=== PATIENT | female | born 1995 | race African-American/Black ===

== ENCOUNTER → 2018-05-01 | Outpatient (CLI) | payer SELFPAY ==
--- NOTE | 2018-05-01 15:54 | RADIOLOGY REPORT (SQ) ---
EXAM DESCRIPTION: U/S ON8HIDD TRNABD 1GES W/ODOP COMPLETED DATE/TIME: 05/01/2018 3:37 pm REASON FOR STUDY: ENCOUNTER FOR SUPRVSN OF NORMAL , SECOND TRIMESTER Z34.82 ENCOUNTER FOR SUPRVSN OF NORMAL , SECOND TRI COMPARISON: None. TECHNIQUE: Static and Dynamic grayscale imaging performed of gravid uterus using transabdominal appr oac. Additional selected color Doppler and spectral images recorded. All stored on PACS. LIMITATIONS: None. FINDINGS: EGA: 21 weeks 4 days VLADISLAV: 09/07/2018 EFW: 434 grams PERCENTILE: Not calculated. JOÃO: 13.5 PLACENTA: Posterior. GRADE: I PRESENTATION: Cephalic. ANATOMY: HEART RATE: 150 beats per minute. FOUR CHAMBER HEART: Visualized. THREE VESSEL CORD: Yes. CORD INSERTION: Visualized. KIDNEYS AND BLADDER: Visualized. Appear normal. STOMACH: Visualized. Appears normal. SPINE: Normal as visualized. BRAIN AND LATERAL VENTRICLES: Visualized. Appear normal. OTHER: No other significant finding. MATERNAL ADNEXA: Maternal ovaries not visualized. CERVICAL LENGTH: 3.8 cm Closed. OTHER: No other significant finding. IMPRESSION: LIVING INTRAUTERINE . ESTIMATED GESTATIONAL AGE 21 weeks 4 days. NO VISUALIZED ANOMALIES. Trimester of : Second trimester - 13 weeks 1 day to 27 weeks 6 days. TECHNICAL DOCUMENTATION: JOB ID: [id number] [employer]- All Rights Reserved Reading location - IP/workstation name: [email or web address]
== END ==
LOC: RAD 13:46
PROVIDERS: ATTEND Nurse Practitioner Women's Health
DX: Z34.82 Encounter for supervision of other normal pregnancy, second trimester (principal)
CPT/HCPCS: 76801

== ENCOUNTER 2018-08-19 11:59 | Inpatient (IN) | payer MEDICAID ==
[2018-08-19] MEDS ORDERED: RINGERS SOLUTION,LACTATED 1,000 ML IV PRN (12:37)
[2018-08-19] MEDS ORDERED: RINGERS SOLUTION,LACTATED 1,000 ML IV ONE (12:37)
[2018-08-19] MEDS ORDERED: LIDOCAINE 1% INJ-PF (10 MG/ML) 30 ML SDV ONE (12:54)
[2018-08-19] MEDS ORDERED: PENICILLIN G-K 5 MILLION UNIT VIAL ONE ×2 (12:54→17:39)
[2018-08-19] MEDS ORDERED: MISOPROSTOL 0.2 MG TABLET ONE (12:54)
[2018-08-19] MEDS ORDERED: OXYTOCIN/NORMAL SALINE 20 UNIT/1,000 ML RTUINJ ONE (12:54)
[2018-08-19] MEDS ORDERED: PENICILLIN G POTASSIUM 5,000,000 UNIT in DEXTROSE 5%-WATER 100 ML IV ONE (12:57)
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
[2018-08-19 13:34] LABS: URINE AMPHETAMINES SCREEN NEGATIVE; URINE BARBITURATES SCREEN NEGATIVE; URINE BENZODIAZEPINES SCREEN NEGATIVE; URINE METHADONE SCREEN NEGATIVE; URINE PHENCYCLIDINE SCREEN NEGATIVE
[2018-08-19 13:38] LABS: URINE COCAINE SCREEN UNCONFIRMED POSITIVE; URINE MARIJUANA (THC) SCREEN UNCONFIRMED POSITIVE
[2018-08-19 14:29] LABS: ABSOLUTE EOSINOPHILS # (AUTO) 0.1 10^3/uL (0.0-0.6); ABSOLUTE LYMPHOCYTES (AUTO) 1.5 10^3/uL (0.5-4.7); ABSOLUTE MONOCYTES (AUTO) 0.5 10^3/uL (0.1-1.4); ABSOLUTE NEUT (AUTO) 5.2 10^3/uL (1.7-8.2); BASOPHILS % (AUTO) 0.2 % (0-2); EOSINOPHILS % (AUTO) 0.8 % (0-6); HEMATOCRIT 30.4 % (36.0-47.0); HEMOGLOBIN 10.1 g/dL (12.0-15.5); LYMPHOCYTES % (AUTO) 20.2 % (13-45); MEAN CORPUSCULAR HEMOGLOBIN 29.9 pg (27.0-33.4); MEAN CORPUSCULAR HGB CONC 33.4 g/dL (32.0-36.0); MEAN CORPUSCULAR VOLUME 90 fl (80-97); MONOCYTES % (AUTO) 6.6 % (3-13); PLATELET COUNT 170 10^3/uL (150-450); RED BLOOD COUNT 3.39 10^6/uL (3.72-5.28); RED CELL DISTRIBUTION WIDTH 14.2 % (11.5-14.0); SEGMENTED NEUTROPHILS % (AUTO) 72.2 % (42-78); TOTAL CELLS COUNTED % (AUTO) 100 %; WHITE BLOOD COUNT 7.2 10^3/uL (4.0-10.5)
[2018-08-19] MEDS ORDERED: EPHEDRINE SULFATE INJ 50 MG/1 ML AMPULE ONE (15:27)
[2018-08-19] MEDS ORDERED: BUPIVACAINE HCL/NS/PF 125 MG/100 ML RTUINJ EPI ONE (15:27)
[2018-08-19] MEDS ORDERED: BUPIVACAINE HCL 0.5 % INJ/PF 30 ML SDV ONE (15:27)
[2018-08-19] MEDS ORDERED: PHENYLEPHRINE HCL INJ/PF 10 MG/1 ML SDV ONE (15:27)
[2018-08-19 15:28] LABS: RUBELLA INTERPRETATION POSITIVE
[2018-08-19 15:36] LABS: CHLAM PCR NOT DETECTED (NOT DETECT); GON PCR NOT DETECTED (NOT DETECT)
[2018-08-19] MEDS: PENICILLIN G POTASSIUM 2,500,000 UNIT in DEXTROSE 5%-WATER 50 ML IV SCH ×2 (17:48→21:41)
[2018-08-19] MEDS ORDERED: ACETAMINOPHEN WITH CODEINE #3 TABLET PO PRN ×2 (19:06)
[2018-08-19] MEDS ORDERED: OXYTOCIN/NORMAL SALINE 20 UNIT/1,000 ML RTUINJ IV PRN (19:06)
[2018-08-19] MEDS ORDERED: ZOLPIDEM TARTRATE 5 MG TABLET PO PRN (19:06)
[2018-08-19] MEDS ORDERED: BENZOCAINE/MENTHOL AEROSOL SPRAY 56 ML TOP PRN (19:06)
[2018-08-19] MEDS ORDERED: MEASLES,MUMPS&RUBELLA VACC/PF 0.5 ML VIAL SUBCUT PRN (19:06)
[2018-08-19] MEDS ORDERED: DIBUCAINE 1% OINTMENT 28 GM TP PRN (19:06)
[2018-08-19] MEDS ORDERED: PROMETHAZINE HCL INJ 25 MG/1 ML VIAL IV PRN (19:07)
[2018-08-19] MEDS ORDERED: ACETAMINOPHEN 325 MG TABLET PO PRN (19:07)
[2018-08-19] MEDS ORDERED: DIPHENHYDRAMINE HCL 25 MG CAPSULE PO PRN (19:07)
[2018-08-19] MEDS ORDERED: GLYCERIN/WITCH HAZEL LEAF 1 EACH MED..PAD TP PRN (19:07)
[2018-08-19] MEDS ORDERED: DIPH/PERTUSS(ACELL)/TETANUS VAC/PF 0.5 ML SYR (>=10YO) IM PRN (19:07)
[2018-08-19] MEDS ORDERED: PROMETHAZINE HCL 25 MG SUPP.RECT PR PRN (19:07)
[2018-08-19] MEDS ORDERED: PSEUDOEPHEDRINE HCL 30 MG TABLET PO PRN (19:07)
[2018-08-19] MEDS ORDERED: NA PHOS,M-B/NA PHOS,DI-BA (ADULT) 133 ML ENEMA PR PRN (19:07)
[2018-08-19] MEDS ORDERED: PROMETHAZINE HCL 25 MG TABLET PO PRN (19:07)
[2018-08-19] MEDS ORDERED: MAGNESIUM HYDROXIDE SUSP 30 ML UDCUP PO PRN (19:07)
--- NOTE | 2018-08-19 19:38 | Warning Signs in Babies ---
VOD Warning Signs Datetime Report Generated by N: 08/19/2018 19:37 VOD#608 -Warning Signs in Babies: Viewed with Parent(s)/Family (08/19/2018 19:30:Laurie Mims RN)
--- NOTE | 2018-08-19 21:03 | Delivery Summary ---
Del Sum A-C Datetime Report Generated by CPN: 08/19/2018 21:03 DELIVERY PERSONNEL DELIVERY PERSONNEL: [id number] Delivery Doctor:: Avis Albright MD Anesthesiologist:: Ruth Niño MD Labor and Delivery Nurse:: Hallie Mcgraw RNfreedom of information officer Nurse:: Jennifer Marquez RN Astrophysics Teacher/BUSINESS SOLUTION ANALYST: Aurea Cortes, ST MATERNAL INFORMATION Delivery Anesthesia: Epidural Medications After Delivery: Pitocin Bolus-Please Comment Meds After Delivery Comment: Pitocin 20 units in 1000mL NS Maternal Complications: Premature Rupture of Membranes Provider Comments: VMI delivered in KAY presentation. No nuchal cord. SHoulders and body delivered without difficulty. Cord doubly clamped and cut and to maternal abdomen for NRP. Placenta delivered intact spontaneously. No perineal lacerations. FF at U. Mother and baby stable upon provider leaving the room. LABOR SUMMARY EDC: 08/29/2018 00:00 No. Babies in Womb: 1 Attempted: No Labor Anesthesia: Epidural LABOR INFORMATION Reason for Induction: Not Applicable Onset of Labor: 08/19/2018 12:45 Complete Dilatation: 08/19/2018 18:50 Oxytocin: N/A Group B Beta Strep: unknown Antibiotics # of Doses: 2 Antibiotics Time of Last Dose: 1747 Name of Antibiotic Given: PCN Steroids Given: None Reason Steroids Not Administered: Not Applicable MEMBRANES Membranes Rupture Method: Spontaneous Rupture of Membranes: 08/19/2018 10:30 Length of Rupture (hr): 8.42 Amniotic Fluid Color: Clear Amniotic Fluid Amount: Small Amniotic Fluid Odor: Normal STAGES OF LABOR Stage 1 hr: 6 Stage 1 min: 5 Stage 2 hr: 0 Stage 2 min: 5 Stage 3 hr: 0 Stage 3 min: 2 Total Time in Labor hr: 6 Total Time in Labor min: 12 VAGINAL DELIVERY Episiotomy: None Laceration #1: None Laceration Extension #1: N/A Laceration Repair: Not Applicable Sponge Count Correct: Yes Sharps Count Correct: Yes CSECTION DELIVERY Primary Indication: N/A CSection Incidence: N/A Labor: N/A Elective: N/A CSection Incision: N/A BABY A INFORMATION Infant Delivery Date/Time: 08/19/2018 18:55 Method of Delivery: Vaginal Born in Route : No : N/A Forceps: N/A Vacuum Extraction: N/A Shoulder Dystocia : No PRESENTATION/POSITION BABY A Presentation: Cephalic Cephalic Presentation: Vertex Vertex Position: Right Occipital Anterior Breech Presentation: N/A PLACENTA INFORMATION BABY A Placenta Delivery Time : 08/19/2018 18:57 Placenta Method of Delivery: Spontaneous Placenta Status: Delivered SCORES BABY A Heart Rate 1 min: >100 bpm Resp Effort 1 min: Good Cry Reflex Irritability 1 min: Cough or Sneeze or Pulls Away Muscle Tone 1 min: Active Motion Color 1 min: Blue/Pale Resuscitation Effort 1 min: Tactile Stimulation SCORE 1 MIN: 8 Heart Rate 5 min: >100 bpm Resp Effort 5 min: Good Cry Reflex Irritability 5 min: Cough or Sneeze or Pulls Away Muscle Tone 5 min: Active Motion Color 5 min: Body [place], Extremities Blue Resuscitation Effort 5 min: Tactile Stimulation SCORE 5 MIN: 9 INFORMATION BABY A Gestational Age at Delivery: 38.4 Gestational Status: Early Term- 37- 38.6 Weeks Infant Outcome : Liveborn Condition : Stable Infant Sex: Male IDENTIFICATION BABY A Infant Verification Date/Time: 08/19/2018 19:24 ID Band Number: [id number] Mother's Name Verified: Yes RN Verifying : B Baidy RN WEIGHT/LENGTH BABY A Infant Birthweight (gm): 2330 Infant Weight (lb): 5 Weight (oz): 2 Infant Length (in): 17.50 Length (cm): 44.45 CORD INFORMATION BABY A No. Cord Vessels: 3 Nuchal Cord : N/A Cord Blood Taken: Yes-For Eval (Mom's Blood Type - or O+) Infant Suction: Mouth; Nose ASSESSMENT BABY A Skin to Skin: Yes BABY B INFORMATION : N/A SIGNATURES Signature: with User ID: Carol Ann
[2018-08-19] MEDS: IBUPROFEN 800 MG TABLET PO SCH (21:36)
[2018-08-19] MEDS: FAMOTIDINE 20 MG TABLET PO SCH (21:36)
[2018-08-20] MEDS: PENICILLIN G POTASSIUM 2,500,000 UNIT in DEXTROSE 5%-WATER 50 ML IV SCH (05:13)
[2018-08-20] MEDS: IBUPROFEN 800 MG TABLET PO SCH ×3 (05:19→21:03)
[2018-08-20 06:08] LABS: HEMATOCRIT 27.5 % (36.0-47.0); HEMOGLOBIN 9.4 g/dL (12.0-15.5); MEAN CORPUSCULAR HEMOGLOBIN 30.5 pg (27.0-33.4); MEAN CORPUSCULAR HGB CONC 34.3 g/dL (32.0-36.0); MEAN CORPUSCULAR VOLUME 89 fl (80-97); PLATELET COUNT 147 10^3/uL (150-450); RED BLOOD COUNT 3.09 10^6/uL (3.72-5.28); RED CELL DISTRIBUTION WIDTH 13.9 % (11.5-14.0); WHITE BLOOD COUNT 10.2 10^3/uL (4.0-10.5)
[2018-08-20] MEDS: DOCUSATE SODIUM 100 MG CAPSULE PO SCH ×2 (09:28→17:39)
[2018-08-20] MEDS: FERROUS SULFATE 325 MG TABLET PO SCH ×2 (09:28→17:39)
[2018-08-20] MEDS: FAMOTIDINE 20 MG TABLET PO SCH ×2 (09:28→21:03)
[2018-08-20] MEDS: PRENATAL VITAMIN W DHA CAPSULE PO SCH (09:28)
[2018-08-20] MEDS: SENNOSIDES/DOCUSATE 8.6-50 MG 1 EACH TABLET PO SCH (09:28)
--- NOTE | 2018-08-20 10:23 | PDOC PROGRESS REPORT ---
Subjective-OB Progress Note for:: 08/20/18 Subjective: Sitting on side of bed, mother at BS holding baby, bottle feeding Physical Exam (OB) Vital Signs: Temp Pulse Resp BP Pulse Ox 97.8 F 70 16 109/57 L 100 08/20/18 07:37 08/20/18 07:37 08/20/18 07:37 08/20/18 07:37 08/20/18 07:37 Intake & Output 08/19/18 08/20/18 08/21/18 06:59 06:59 06:59 Intake Total 1550 Balance 1550 Weight 55 kg - PIH/Pre-Eclampsia Clonus: Negative Headache: Absent Epigastric Pain: No Visual Changes: No - Lochia Lochia Amount: Scant < 10 ml Lochia Color: Rubra/Red - Abdomen Description: Tender, Soft Hernia Present: No Fundal Description: Firm, Midline Fundal Height: u/u - u/2 Objective-Diagnostic Laboratory: 08/20/18 05:40 08/19/18 08/19/18 08/20/18 13:59 13:59 05:40 WBC 7.2 10.2 RBC 3.39 L 3.09 L Hgb 10.1 L 9.4 L Hct 30.4 L 27.5 L MCV 90 89 MCH 29.9 30.5 MCHC 33.4 34.3 RDW 14.2 H 13.9 Plt Count 170 147 L Seg Neutrophils % 72.2 Lymphocytes % 20.2 Monocytes % 6.6 Eosinophils % 0.8 Basophils % 0.2 Absolute Neutrophils 5.2 Absolute Lymphocytes 1.5 Absolute Monocytes 0.5 Absolute Eosinophils 0.1 Absolute Basophils 0.0 Blood Type O POSITIVE Antibody Screen TNP Assessment and Plan(PN) - Assessment and Plan (1) Anemia Qualifiers: Anemia type: iron deficiency Is this a current diagnosis for this admission?: Yes (2) Vaginal delivery Is this a current diagnosis for this admission?: Yes (3) Spontaneous rupture of membranes Is this a current diagnosis for this admission?: Yes (4) Limited care Qualifiers: Trimester: unspecified trimester Qualified Code(s): O09.30 - Supervision of with insufficient care, unspecified trimester Is this a current diagnosis for this admission?: Yes (5) Marijuana abuse Is this a current diagnosis for this admission?: Yes (6) Cocaine abuse Is this a current diagnosis for this admission?: Yes (7) Smoker Is this a current diagnosis for this admission?: Yes - Time Spent with Patient Time with patient: Less than 15 minutes Medications reviewed and adjusted accordingly: Yes - Disposition Anticipated Discharge: Home Within: within 24 hours
[2018-08-21] MEDS: IBUPROFEN 800 MG TABLET PO SCH ×2 (05:48→14:03)
[2018-08-21 07:42] LABS: HEPATITIS C VIRUS AB <0.1 s/co ratio (0.0-0.9)
[2018-08-21 08:08] VITALS: BP 110/64
[2018-08-21] MEDS: PRENATAL VITAMIN W DHA CAPSULE PO SCH (09:39)
[2018-08-21] MEDS: FAMOTIDINE 20 MG TABLET PO SCH (09:39)
[2018-08-21] MEDS: DOCUSATE SODIUM 100 MG CAPSULE PO SCH ×2 (09:39→18:32)
[2018-08-21] MEDS: SENNOSIDES/DOCUSATE 8.6-50 MG 1 EACH TABLET PO SCH (09:39)
[2018-08-21] MEDS: FERROUS SULFATE 325 MG TABLET PO SCH ×2 (09:39→18:32)
--- NOTE | 2018-08-21 10:45 | PDOC DISCHARGE SUMMARY ---
Final Diagnosis Discharge Date: 08/21/18 - Final Diagnosis (1) Anemia Is this a current diagnosis for this admission?: Yes (2) Limited care Is this a current diagnosis for this admission?: Yes (3) Vaginal delivery Is this a current diagnosis for this admission?: Yes Discharge Data - Discharge Medication Prescriptions: Ibuprofen [Motrin 800 mg Tablet] 800 mg PO Q8HP PRN #60 tablet PRN Reason: Home Medications: Ferrous Sulfate [Feosol 325 mg Tablet] 325 mg PO BID tablet 08/21/18 Ibuprofen [Motrin 800 mg Tablet] 800 mg PO Q8HP PRN #60 tablet 08/21/18 Vit/Dha [ Multi + Dha Capsule] 1 cap PO DAILY capsule Procedures: NST Intrapartum Procedure(s): Spontaneous Vaginal Delivery - Diagnosis Test Laboratory: Temp Pulse Resp BP Pulse Ox 97.9 F 57 L 14 110/64 100 08/21/18 09:02 08/21/18 09:02 08/21/18 09:02 08/21/18 09:02 08/21/18 09:02 08/19/18 08/19/18 08/20/18 12:11 13:59 05:40 RBC 3.39 L 3.09 L Hgb 10.1 L 9.4 L Hct 30.4 L 27.5 L Urine Opiates Screen NEGATIVE - Discharge information/Instructions Discharge Activity: Balance Activity w/Rest, Pelvic Rest Discharge Diet: Regular Disposition: HOME, SELF-CARE Follow up with: [facility] in: 4, Weeks
[2018-08-21 13:00] LABS: HEPATITS B SURFACE ANTIGEN Negative (Negative); VARICELLA ZOSTER IGG AB 505 index (Immune >16)
== END 2018-08-21 18:50 | disposition home or self-care (01) | DRG 806 ==
LOC: LC 11:59 → LR 12:57 → 2S 21:10
PROVIDERS: ADMIT Student in an Organized Health Care Education/Training Program; ATTEND Student in an Organized Health Care Education/Training Program
PROC: 10E0XZZ Delivery of Products of Conception, External Approach (ICD-10-PCS; principal; 2018-08-19)
PROC: 4A1HXCZ Monitoring of Products of Conception, Cardiac Rate, External Approach (ICD-10-PCS; 2018-08-19)
PROC: 3E0234Z Introduction of Serum, Toxoid and Vaccine into Muscle, Percutaneous Approach (ICD-10-PCS; 2018-08-21)
PROC: 3E02340 Introduction of Influenza Vaccine into Muscle, Percutaneous Approach (ICD-10-PCS; 2018-08-21)
DX: O99.02 Anemia complicating childbirth (principal); O99.323 Drug use complicating pregnancy, third trimester; Z37.0 Single live birth; D50.9 Iron deficiency anemia, unspecified; F14.10 Cocaine abuse, uncomplicated; F12.10 Cannabis abuse, uncomplicated; O99.334 Smoking (tobacco) complicating childbirth; F17.210 Nicotine dependence, cigarettes, uncomplicated; Z23 Encounter for immunization; Z3A.38 38 weeks gestation of pregnancy
CPT/HCPCS: 36415; 80307; 80349; 80353; 84112; 85025; 85027; 85660; 86592; 86695; 86701; 86762; 86787; 86803; 86804; 86850; 86900; 86901; 87077; 87081; 87340; 87491; 87591; 88307; 90471; 90686; 90715; G0008; G0480; J2370; J2540; J2590; J3490

== ENCOUNTER 2018-10-27 18:42 | Emergency (ER) | payer MEDICAID | END 2018-10-27 18:51 | disposition left against medical advice (07) | LOC: ER 18:42 | DX: Z53.21 Procedure and treatment not carried out due to patient leaving prior to being seen by health care provider (principal) ==